=== PATIENT | male | born 1990 | race Caucasian/White ===

== ENCOUNTER 2021-09-11 22:49 | Observation (INO) | payer SELFPAY ==
[~2021-09-11] VITALS: Ht 172.7 cm; Wt 65.8 kg
[2021-09-11 23:54] LABS: HEMOGLOBIN 16.2 gm/dl (14.0-17.5); RED BLOOD COUNT 5.17 M/UL (4.20-5.50); WHITE BLOOD COUNT 10.4 K/UL (4.5-11.0)
[2021-09-12 00:12] LABS: BUN/CREATININE RATIO 15 (0-10)
[2021-09-13 12:13] LABS: HBSAG SCREEN Negative (Negative); HEP A AB, IGM Negative (Negative); HEP B CORE AB, IGM Negative (Negative); HEP C VIRUS AB >11.0 (0.0-0.9)
== END 2021-09-12 10:14 | disposition left against medical advice (07) ==
LOC: ER1 22:49 → CDU 09-12 00:22
PROVIDERS: Physician Assistant; ADMIT Internal Medicine
DX: L03.114 Cellulitis of left upper limb (principal); L02.512 Cutaneous abscess of left hand; M65.9 Synovitis and tenosynovitis, unspecified; Z90.49 Acquired absence of other specified parts of digestive tract; F17.210 Nicotine dependence, cigarettes, uncomplicated; B18.2 Chronic viral hepatitis C; Z20.822 Contact with and (suspected) exposure to COVID-19; Z53.29 Procedure and treatment not carried out because of patient's decision for other reasons
CPT/HCPCS: 73130; 80053; 80074; 82550; 82553; 83605; 83874; 84484; 85025; 87040; 96365; 96368; 96375; 99284; G0378; J1170; J1885; J2270; J2543; J3370; J7030; J7050; U0002